=== PATIENT | male | born 1965 | race Caucasian/White ===

== ENCOUNTER 2016-11-26 09:10 | Emergency (ER) | payer BC ==
[~2016-11-26] VITALS: Ht 182.9 cm; Wt 121.3 kg
[~2016-11-26 09:10] MED LIST: NAPR1TAB9 PO
[2016-11-26 09:14] VITALS: TEMP 36.9; Ht 182.9 cm; Wt 121.3 kg
[2016-11-26 09:30] VITALS: O2SAT 95
[2016-11-26 09:46] LABS: HEMATOCRIT 47.1 % (42-52); MEAN CELL VOLUME 89.9 fL (80-100); MEAN CORPUSCULAR HEMOGLOBIN 29.8 pg (25-34); MEAN CORPUSCULAR HGB CONC 33.1 g/dl (32-36); MEAN PLATELET VOLUME 9.9 fL (7.4-10.4); PLATELET COUNT 240 K/uL (130-400); RED BLOOD COUNT 5.24 M/uL (4.7-6.1); WHITE BLOOD COUNT 6.54 K/uL (4.8-10.8)
[2016-11-26 10:01] LABS: INR 0.9 (0.9-1.1); PARTIAL THROMBOPLASTIN RATIO 1.1
[2016-11-26] MEDS ORDERED: ZCR5 PO (10:02)
--- NOTE | 2016-11-26 10:03 | EMERGENCY ROOM VISIT NOTE ---
History Report prepared by Albina: Shell Stevens Under the Supervision of: Dr. Derek Martin M.D. First contact with patient: 09:32 Chief Complaint: CHEST PAIN Stated Complaint: CHEST PAIN History of Present Illness The patient is a 50 year old male who presents to the Emergency Room with complaints of persistent left sided chest pain that began four hours ago. He currently rates his discomfort as a 2/10 in severity. The patient states that he woke this morning around 0530 with the chest pain. He denies any shortness of breath, diaphoresis, nausea, or pain radiating to any other part of the body. The patient denies his pain worsening with exertion or deep breathing. He states that his pain is worsened with turning his head. The patient states that he just traveled home from a long trip by plane. He denies any personal or family history of blood clots. The patient denies any history of a previous RI. Source of History: patient Onset: four hours ago Position: chest (left) Symptom Intensity: 2/10 Timing: other (persistent) Associated Symptoms: No diaphoresis, No SOB, No nausea Review of Systems See HPI for pertinent positives & negatives. A total of 10 systems reviewed and were otherwise negative. Past Medical & Surgical Medical Problems: (1) No active medical problems Family History Diabetes mellitus Kidney disease Kidney stones Social History Smoking Status: Never Smoker Smokeless Tobacco Use: No Alcohol Use: occasionally Drug Use: none Marital Status: Housing Status: lives with family Occupation Status: employed Current/Historical Medications Scheduled Simvastatin (Simvastatin), 5 MG PO QAM Allergies Coded Allergies: No Known Allergies (Unverified , 11/26/16) Physical Exam Vital Signs Date Time Temp Pulse Resp B/P (MAP) Pulse Ox O2 Delivery O2 Flow Rate FiO2 11/26/16 11:00 68 16 132/74 98 11/26/16 10:00 66 16 129/77 95 Room Air 11/26/16 09:30 95 Room Air 11/26/16 09:30 95 Room Air 11/26/16 09:26 78 11/26/16 09:14 36.9 73 16 137/73 98 Room Air Physical Exam GENERAL: Patient is in no acute distress. HEENT: No acute trauma, normocephalic atraumatic, mucous membranes moist, no nasal congestion, no scleral icterus. NECK: No stridor, no adenopathy, no meningismus, trachea is midline. CHEST WALL: Nontender chest wall LUNGS: Clear to auscultation bilaterally, no wheeze, no rhonchi, breath sounds equal. HEART: Without murmurs gallops or rubs, regular rate and rhythm. ABDOMEN: Soft, nontender, bowel sounds positive, no hernias, no peritonitis. EXTREMITIES: No cyanosis or edema, full range of motion of all the joints without pain or difficulty, no signs for acute trauma. NEUROLOGIC: Oriented x 3, no acute motor or sensory deficits, no focal weakness. SKIN: No rash, no jaundice, no diaphoresis. Medical Decision & Procedures ER Provider Diagnostic Interpretation: X-ray results as stated below per interpretation by me and the radiologist: SINGLE VIEW CHEST CLINICAL HISTORY: Atypical chest pain. FINDINGS: An AP, portable, upright chest radiograph is compared to study dated 04/14/2012. The examination is degraded by portable technique and patient rotation. The heart is enlarged. The pulmonary vasculature is noncongested. There is minimal bibasilar atelectasis. The lungs and pleural spaces are otherwise clear. No pneumothorax is seen. The bony thorax is grossly intact. IMPRESSION: Cardiac enlargement with no acute cardiopulmonary abnormality. Electronically signed by: Derek Reyes M.D. 11/26/2016 10:18 AM Dictated Date/Time: 11/26/2016 10:17 AM Laboratory Results 11/26/16 09:29 11/26/16 09:29 Test 11/26/16 09:29 11/26/16 09:43 Red Blood Count 5.24 M/uL (4.7-6.1) Mean Corpuscular Volume 89.9 fL (80-100) Mean Corpuscular Hemoglobin 29.8 pg (25-34) Mean Corpuscular Hemoglobin Concent 33.1 g/dl (32-36) RDW Standard Deviation 42.6 fL (36.4-46.3) RDW Coefficient of Variation 13.0 % (11.5-14.5) Mean Platelet Volume 9.9 fL (7.4-10.4) Prothrombin Time 10.0 SECONDS (9.0-12.0) Prothromb Time International Ratio 0.9 (0.9-1.1) Activated Partial Thromboplast Time 27.3 SECONDS (21.0-31.0) Partial Thromboplastin Ratio 1.1 Anion Gap 6.0 mmol/L (3-11) Est Creatinine Clear Calc Drug Dose 136.7 ml/min Estimated GFR () 116.1 Estimated GFR (Non- 100.2 BUN/Creatinine Ratio 23.6 (10-20) Calcium Level 9.0 mg/dl (8.5-10.1) Total Bilirubin 0.6 mg/dl (0.2-1) Aspartate Amino Transf (AST/SGOT) 26 U/L (15-37) Alanine Aminotransferase (ALT/SGPT) 44 U/L (12-78) Alkaline Phosphatase 111 U/L (45-117) Troponin I 0.018 ng/ml (0-0.045) Total Protein 7.4 gm/dl (6.4-8.2) Albumin 3.9 gm/dl (3.4-5.0) Globulin 3.5 gm/dl (2.5-4.0) Albumin/Globulin Ratio 1.1 (0.9-2) Bedside D-Dimer 101 ng/mlFEU (0-450) Laboratory results reviewed by me. ECG Indication: chest pain Rate (beats per minute): 64 Rhythm: normal sinus Findings: no acute ischemic change, no ectopy ED Course 0933: The patient was evaluated in room B6. A complete history and physical exam was performed. 1033: I reevaluated the patient and he is resting comfortably. I discussed the exam findings with him and I discussed the treatment plan. He verbalized complete understanding and agreement. He is ready to go home. Medical Decision The patient is a 50 year old male who presents to the ED with complaints of left sided chest pain. Differential diagnoses considered include musculoskeletal pain, pneumonia, pneumothorax, RI, PE, aortic dissection. There is no leukocytosis or concerning anemia. No significant electrolyte abnormality, kidney failure or hepatitis. There is no coagulopathy. EKG shows a normal sinus rhythm, no acute ischemia. Cardiac enzyme testing times one is not consistent with acute cardiac injury. Chest x-ray shows no mediastinal widening, pneumonia or pneumothorax. D-dimer testing is negative. With a negative d-dimer and my low suspicion for PE, I will stop the workup for this diagnosis. Patient presents with left-sided chest pain. His workup is benign, he was reassured. The pain is likely musculoskeletal as it does worsen with certain head movements. The patient was encouraged to return for worsening symptoms. Medication Reconcilliation Current Medication List: was personally reviewed by me Impression Primary Impression: Left sided chest pain Scribe Attestation The scribe's documentation has been prepared under my direction and personally reviewed by me in its entirety. I confirm that the note above accurately reflects all work, treatment, procedures, and medical decision making performed by me. Departure Information Dispostion Home / Self-Care Referrals Cholo Meyer M.D. (PCP) Forms Call Back Authorization, HOME CARE DOCUMENTATION FORM, IMPORTANT VISIT INFORMATION Patient Instructions My [facility] Additional Instructions otc pain meds heat to the area may help return for worsening symptoms testing of heart and lungs today was ok
[2016-11-26 10:06] LABS: BUN/CREATININE RATIO 23.6 (10-20); CREATININE 0.85 mg/dl (0.60-1.40)
[2016-11-26 10:10] LABS: ALB/GLOB RATIO 1.1 (0.9-2)
--- NOTE | 2016-11-26 10:19 | DIAGNOSTIC IMAGING REPORT ---
SINGLE VIEW CHEST CLINICAL HISTORY: Atypical chest pain. FINDINGS: An AP, portable, upright chest radiograph is compared to study dated 04/14/2012. The examination is degraded by portable technique and patient rotation. The heart is enlarged. The pulmonary vasculature is noncongested. There is minimal bibasilar atelectasis. The lungs and pleural spaces are otherwise clear. No pneumothorax is seen. The bony thorax is grossly intact. IMPRESSION: Cardiac enlargement with no acute cardiopulmonary abnormality. Electronically signed by: Derek Reyes M.D. 11/26/2016 10:18 AM Dictated Date/Time: 11/26/2016 10:17 AM
[2016-11-26 11:00] VITALS: BP 132/74; PULSE 68; O2SAT 98
== END 2016-11-26 11:00 | disposition home or self-care (01) ==
LOC: C.EDB 09:11
DX: R07.9 Chest pain, unspecified (principal); Z83.3 Family history of diabetes mellitus; Z84.1 Family history of disorders of kidney and ureter